=== PATIENT | male | born 1945 | race Two or more races ===

== ENCOUNTER 2021-01-09 12:23 | Emergency (ER) | payer OTHER ==
[~2021-01-09] VITALS: Ht 165.1 cm; Wt 78.0 kg
[2021-01-09] MEDS ORDERED: MORPHINE SULFATE INJ 2 MG/ML DISP.SYRIN ONE (13:03)
--- NOTE | 2021-01-09 13:06 | NUR ---
CLIP BAKER AT BEDSIDE
[2021-01-09] MEDS: MORPHINE SULFATE INJ 2 MG/ML DISP.SYRIN IM ONE (13:11)
[2021-01-09] MEDS ORDERED: PROPOFOL 20 ML IV ONE (13:17)
--- NOTE | 2021-01-09 13:17 | NUR ---
PT PT VERBALIZES UNDERSTANDING ,AGREED AND SIGNED CONSENT FORM FOR RIGHT SHOULDER CLOSED REDUCTION UNDER MODERATE SEDATION.
--- NOTE | 2021-01-09 13:32 | NUR ---
VERBAL ORDER FOR DIPROVAN 15MG BY KENDAL VILLALBA AND ADMINISTERED
--- NOTE | 2021-01-09 13:33 | NUR ---
PT TOLERATING DIPROVAN WELL WITH NO SOB; PT ON NRB AT 100%. RESP EVEN AND NON LABORED. RR 15
--- NOTE | 2021-01-09 13:34 | NUR ---
VERBAL ORDER FOR DIPROVAN 10MG BY KENDAL VILLALBA AND ADMINISTERED
--- NOTE | 2021-01-09 13:36 | NUR ---
VERBAL ORDER FOR DIPROVAN 10MG BY KENDAL VILLALBA AND ADMINISTERED
--- NOTE | 2021-01-09 13:38 | NUR ---
VERBAL ORDER FOR DIPROVAN 10MG BY KENDAL VILLALBA AND ADMINISTERED
--- NOTE | 2021-01-09 13:39 | NUR ---
AT PT'S BEDSIDE
--- NOTE | 2021-01-09 13:40 | NUR ---
VERBAL ORDER FOR DIPROVAN 10MG BY KENDAL VILLALBA AND ADMINISTERED
--- NOTE | 2021-01-09 13:40 | NUR ---
REDUCTION OF R SHOULDER DONE FOR SHOULDER DISLOCATION BY KENDAL VILLALBA
--- NOTE | 2021-01-09 13:46 | NUR ---
PT AAOX4; TOELRATING PROCERDURE WELL. SLING TO R SHOULDER. D/C NRB AND PT TOLERATING WELL WITH NO SOB. RESP EVEN AND NONLABORED.
--- NOTE | 2021-01-09 13:48 | NUR ---
[facility] [employer] AT PT'S BEDSIDE
--- NOTE | 2021-01-09 13:50 | NUR ---
CALLED TRUPTI,SON, COMING TO PICK HIM UP
[2021-01-09] MEDS ORDERED: KETOROLAC TROMETHAMINE 15 MG/ML VIAL ONE (14:07)
[2021-01-09] MEDS: KETOROLAC TROMETHAMINE INJ 30 MG/ML VIAL IV ONE (14:15)
--- NOTE | 2021-01-09 15:00 | NUR ---
DC IV W/ NO ACTIVE BLEEDING
[2021-01-09] MEDS ORDERED: HYDR-4275 PO (15:07)
[2021-01-09 15:12] VITALS: BP 166/84
--- NOTE | 2021-01-09 15:12 | NUR ---
Patient discharged to home in stable condition. Written and verbal after care instructions given. Patient verbalizes understanding of instruction. PT ambulatory with a steady gait
== END 2021-01-09 15:13 | disposition home or self-care (01) ==
LOC: ER 12:28
DX: S43.084A Other dislocation of right shoulder joint, initial encounter (principal); I10 Essential (primary) hypertension; E78.5 Hyperlipidemia, unspecified; W01.0XXA Fall on same level from slipping, tripping and stumbling without subsequent striking against object, initial encounter; Y93.89 Activity, other specified; Y92.89 Other specified places as the place of occurrence of the external cause; Y99.8 Other external cause status
CPT/HCPCS: 23650; 73030 ×2; 96372; 96374; 99152; 99285; J1885; J2270; J2704; J7030; G0500